=== PATIENT | male | born 1960 | race Caucasian/White ===

== ENCOUNTER → 2017-04-02 | Day surgery (SDC) | payer OTHER ==
[~2017-04-02] MED LIST: LIDOCAINE 1%/EPI 1:100,000 20 ML VIAL. INJ ONE; LIDOCAINE 1%/EPI 1:100,000 20 ML VIAL. ONE
[2017-04-02 07:49] VITALS: BP 141/79
--- NOTE | 2017-04-02 08:26 | DISCH ---
DISCHARGE INSTRUCTIONS Condition on Discharge Condition on Discharge: Stable Activity After Discharge Activity Instructions for Disc: Activity as tolerated Diet after Discharge Diet after Discharge: Regular Wound Incision Care Other wound/incision instructi: May shower in 24 hours Contacting the after DC Call your doctor for: If your condition worsens Follow-Up Follow up with: Dr Rawls in 2 weeks ALTON RAWLS MD Apr 02, 2017 08:26
--- NOTE | 2017-04-02 08:32 | PDOC4 ---
Operative Note Operative Note Date: 04/02/2017 Preoperative diagnosis: Right lower back mass Postoperative diagnosis: Same Procedure: Excision of right back mass Surgeon: Mirza Dictation: Patient is a 56-year-old gentleman with complaints of an enlarging mass on his lower right back had a history of sebaceous cyst in the past. Procedure of excision of mass was explained to the patient in detail risks and benefits were also discussed including bleeding and infection. Patient seemed understanding gave both verbal and written consent to have the procedure performed. Patient was taken to outpatient procedures placed in a sitting position his lower back was prepped and draped usual sterile fashion using ChloraPrep. An area around the mass was injected with 1% lidocaine with epinephrine once this was complete incision over the mass was made with a 10 blade scalpel this was carried down through the subcutaneous tissue. Mesh was sharply excised with Metzenbaum scissors and sent for pathology. Size the mass proximally 3 cm x 3 cm. Wound was then closed in one layer of single running 4- 0 subcuticular Monocryl. Mastisol Steri-Strips and 4 x 4's Medipore tape were applied as dressing. Patient tolerated procedure well was discharged home in stable condition, all sponge instrument and needle counts listed as correct estimated blood loss 5 mL. ALTON RAWLS MD Apr 02, 2017 08:32
--- NOTE | 2017-04-03 16:27 | PATHOLOGY ---
PATHOLOGY REPORT * * * * * * * * FINAL DIAGNOSIS: Fibroadipose tissue, right back mass: - Epidermal inclusion cyst, with focal chronic inflammation and foreign body granulomatous reaction. COMMENT: There is no evidence of malignancy. (JPM:mml; 04/03/2017) REPORT ELECTRONICALLY SIGNED BY: Rene Baum M.D. DATE/TIME: 04/03/2017 16:26 * * * * * * * * GROSS PATHOLOGY: The specimen is received in formalin, designated "Mendez Kay, right back mass" and consists of a previously ruptured apparent sebaceous cyst measuring 3.0 x 1.4 x 0.9 cm. The specimen is shaggy, torn, friable and irregularly shaped. The entire specimen is submitted in cassette A1. (JPM; 04/02/17) INITIAL CPT CODE(S): A; 14928 Professional services performed [place] [facility] [place] [address] Technical services performed by [facility] at [address] [place] [address]. SPECIMEN(S) RECEIVED: A.Right back mass CLINICAL HISTORY: Sebaceous cyst PATIENT: MENDEZ KAY /AGE: 109/12/1960 (Age: 56) PATIENT #: [id number] ALT CASE #: SPECIMEN COLLECTION DATE: 04/02/2017 SPECIMEN RECEIVED DATE: 04/02/2017 [facility] - [address] [place] [address] - PHONE: [phone] * * * END OF REPORT * * *
== END | disposition home or self-care (01) ==
LOC: SURG 07:29
PROVIDERS: ATTEND Surgery
DX: L72.0 Epidermal cyst (principal); Z87.39 Personal history of other diseases of the musculoskeletal system and connective tissue
CPT/HCPCS: 11403; J3490; 88304